=== PATIENT | female | born 1970 | race Hispanic/Latino ===

== ENCOUNTER 2016-06-13 10:21 | Outpatient (CLI) | payer OTHER, MEDICARE ==
[2016-06-13 10:49] LABS: Hematocrit 41.4 % (30.3-42.9); Hemoglobin 13.5 gm/dl (10.1-14.3); Mean Corpuscular HGB Conc 33 % (30-34); Mean Corpuscular Hemoglobin 29 pg (28-32); Mean Corpuscular Volume 88 fl (79-97); Platelet Count 248 K/mm3 (140-440); Red Blood Count 4.71 M/mm3 (3.65-5.03); Red Cell Distribution Width 13.7 % (13.2-15.2); White Blood Count 11.3 K/mm3 (4.5-11.0)
[2016-06-13] MEDS ORDERED: NACL ONE (11:06)
[2016-06-13 11:32] LABS: Alanine Aminotransferase 18 units/L (7-56); Albumin 4.3 g/dL (3.9-5); Albumin/Globulin Ratio 2.3 %; Alkaline Phosphatase 65 units/L (35-129); Anion Gap 18 mmol/L; Bilirubin,Total < 0.2 mg/dL (0.1-1.2); Blood Urea Nitrogen 18 mg/dL (7-17); Carbon Dioxide 24 mmol/L (22-30); Chloride 107.8 mmol/L (98-107); Cholesterol 164 mg/dL (50-199); Glucose 123 mg/dL (65-100); HDL Cholesterol 31 mg/dL (40-59); LDL Cholesterol,Direct 92 mg/dL (50-130); Potassium 3.6 mmol/L (3.6-5.0); Sodium 146 mmol/L (137-145); Total Protein 6.2 g/dL (6.3-8.2); Triglycerides 206 mg/dL (2-149)
--- NOTE | 2016-06-13 12:06 | Cat Scan Report ---
CT CHEST WITH CONTRAST INDICATION: Pulmonary nodules. COMPARISON: 04/07/2015 CXR. FINDINGS: Chest CT performed following intravenous administration of 100 cc of Omnipaque 300. Normal heart size. Unremarkable great vessels. No significant effusions or adenopathy. Tiny right hilar calcification. Patent central airway. Thyroid size normal with a small 5 mm hypodensity on the right posteriorly possible, axial series 2, image 12. Mild bibasilar scarring. At least 4 calcified nodules in the right upper lobe inferiorly noted, the largest approximately 6 mm, axial series 2, image 113 and may correspond to the CXR appearance while others noted on axial images 101-108 measuring up to 5 mm in size or smaller. At least 2 noncalcified nodular densities in that region also noted peripherally on axial images 97 and 101 measuring 2-3 mm. Imaged upper abdomen demonstrates cholecystectomy clips with subtle fatty hepatic infiltration not excluded. Contrast reflux into the hepatic veins noted. Mild multilevel spinal degenerative changes, including Schmorl's nodes, mid thoracic disc degeneration and multilevel degenerative spurring, greatest at C6-C7. CONCLUSION: No acute chest process with old healed granulomatous disease and various other incidental findings, as above. Correlation with more remote chest imaging would also be helpful, if available. Thank you for the opportunity to participate in this patient's care.
== END 2016-06-13 10:22 | disposition home or self-care (01) ==
LOC: CT 10:21
PROVIDERS: ATTEND Internal Medicine
DX: R91.1 Solitary pulmonary nodule (principal); M47.894 Other spondylosis, thoracic region; Z90.49 Acquired absence of other specified parts of digestive tract
CPT/HCPCS: 36415; 71260; 80053; 80061; 84439; 84443; 85027; Q9967